=== PATIENT | male | born 1950 | race Two or more races ===

== ENCOUNTER 2017-04-20 11:38 | Emergency (ER) | payer BC, MEDICARE ==
[~2017-04-20] VITALS: Ht 180.3 cm; Wt 64.5 kg
[2017-04-20 12:09] LABS: HEMATOCRIT 47.8 % (39.2-51.8); HEMOGLOBIN 15.6 g/dL (13.7-18.0); WHITE BLOOD COUNT 10.6 x10^3/uL (3.4-10)
[2017-04-20 12:29] LABS: ASPARTATE AMINO TRANSFERASE 23 U/L (15-37); BLOOD UREA NITROGEN 16 mg/dL (7-18)
[2017-04-20 12:30] LABS: IS PT STATUS REG ER OR PRE ER? YES
[2017-04-20 12:45] LABS: DAU SCREEN DISCLAIMER
[2017-04-20 12:54] LABS: PATH.CAST-FLAG NOT PRESENT; SPERM-FLAG NOT PRESENT; SRC-FLAG NOT PRESENT; XTAL-FLAG NOT PRESENT; YLC-FLAG NOT PRESENT
[2017-04-20 16:37] VITALS: BP 120/84
== END 2017-04-20 16:39 | disposition home or self-care (01) ==
LOC: ED 16:37
DX: E11.65 Type 2 diabetes mellitus with hyperglycemia (principal); E86.0 Dehydration; E11.40 Type 2 diabetes mellitus with diabetic neuropathy, unspecified; A80.9 Acute poliomyelitis, unspecified
CPT/HCPCS: 36415; 70450; 80053; 80307; 81001; 82140; 84484; 85025; 93005; 99285